=== PATIENT | female | born 1995 | race Caucasian/White ===

== ENCOUNTER → 2023-08-02 | Day surgery (SDC) | payer BC ==
[~2023-08-02] MED LIST: ALLEGRA-D 12 H1 EACH PO; FAMOTIDINE20 MG PO; FLONASE ALLERG9.9 ML INH; GLUCOSAMINE &1 EACH PO; LACTATED RINGER'S 1,000 ML ONE; LIDOCAINE HCL 2% LOCAL INJ 5 ML SDV VIAL INJ ONE; MAGNESIUM OXID400 MG PO; METOCLOPRAMIDE HCL 10 MG/2ML VIAL ONE; OMEGA-31000 MG PO; PROPOFOL IV EMULSION 10 MG/ML 20 ML VIAL ONE
[2023-08-02 12:45] VITALS: TEMP 97
[2023-08-02 13:15] VITALS: BP 141/82; PULSE 91; RESP 13; O2SAT 97
== END | disposition home or self-care (01) ==
LOC: OR 10:27
PROVIDERS: ATTEND Internal Medicine Gastroenterology
DX: K21.00 Gastro-esophageal reflux disease with esophagitis, without bleeding (principal); K29.00 Acute gastritis without bleeding; K29.80 Duodenitis without bleeding; E66.01 Morbid (severe) obesity due to excess calories; Z68.43 Body mass index [BMI] 50.0-59.9, adult; R43.8 Other disturbances of smell and taste; M19.91 Primary osteoarthritis, unspecified site; Z79.899 Other long term (current) drug therapy
CPT/HCPCS: 43239; 81025; C9113; J2001; J2704; J2765; J7121